=== PATIENT | female | born 2000 | race Caucasian/White ===

== ENCOUNTER 2023-01-21 14:02 | Emergency (ER) | payer OTHER ==
[~2023-01-21] VITALS: Ht 152.4 cm; Wt 61.7 kg
[2023-01-21] MEDS ORDERED: ZOLOFT100 MG (14:19)
[2023-01-21] MEDS ORDERED: VYVANSE70 MG (14:19)
[2023-01-21 17:18] LABS: HEMATOCRIT 36.6 % (36.0-45.00); HEMOGLOBIN 12.4 g/dL (12.0-15.00); MEAN CELL VOLUME 86.6 fL (80.00-100.00); MEAN CORPUSCULAR HEMOGLOBIN 29.4 pg (27.00-32.0); MEAN CORPUSCULAR HGB CONC 33.9 g/dl (32.0-36.0); PLATELET COUNT 224 K/uL (150-450); RED BLOOD COUNT 4.23 M/uL (4.00-6.00); RED CELL DISTRIBUTION WIDTH 14.1 % (11.5-14.5)
[2023-01-21 17:18] LABS: URINE APPEARANCE Clear; URINE BACTERIA 516.5 uL (0.0-1933); URINE BILIRRUBIN Negative (NEGATIVE); URINE BLOOD Negative; URINE COLOR Yellow; URINE EPITHELIAL CELLS 42.8 uL (0.0-38.8); URINE GLUCOSE Negative (NEGATIVE); URINE LEUKOCYTE Moderate; URINE NITRATE Negative; URINE PROTEIN Negative (NEGATIVE); URINE RBC 8.4 uL (0.0-20.8); URINE WBC 214.8 uL (0.0-23.2)
[2023-01-21 17:31] LABS: URINE MUCUS MODERATE
[2023-01-21 17:38] LABS: CALCIUM 9.1 mg/dL (8.5-10.1); CREATININE SERUM 0.59 mg/dL (0.55-1.02); GFR 126.31; POTASSIUM 3.76 mEq/L (3.5-5.1)
[2023-01-21] MEDS ORDERED: PYRIDIUM100 M1 PO (18:18)
[2023-01-21] MEDS ORDERED: PEPCID AC20 MG PO (18:18)
[2023-01-21] MEDS ORDERED: CIPRO500 MG PO (18:18)
[2023-01-21] MEDS ORDERED: ONDANSETRON HCL4 MG PO (18:18)
== END 2023-01-21 19:16 | disposition home or self-care (01) ==
LOC: ER 14:02
PROVIDERS: Nurse Practitioner Family
DX: N39.0 Urinary tract infection, site not specified (principal)